=== PATIENT | male | born 1995 | race Hispanic/Latino ===

== ENCOUNTER 2018-10-08 17:47 | Emergency (ER) | payer SELFPAY ==
[~2018-10-08] VITALS: Ht 162.6 cm; Wt 54.5 kg
[2018-10-08] MEDS ORDERED: CEPHALEXIN500 M1 PO (18:40)
[2018-10-08 19:35] VITALS: BP 142/74
== END 2018-10-08 19:35 | disposition home or self-care (01) | DRG 605 ==
LOC: ED 17:47
PROC: 0HQFXZZ Repair Right Hand Skin, External Approach (ICD-10-PCS; principal; 2018-10-08)
DX: S61.312A Laceration without foreign body of right middle finger with damage to nail, initial encounter (principal); F17.210 Nicotine dependence, cigarettes, uncomplicated; W23.1XXA Caught, crushed, jammed, or pinched between stationary objects, initial encounter; Y92.009 Unspecified place in unspecified non-institutional (private) residence as the place of occurrence of the external cause